=== PATIENT | male | born 1935 | race Caucasian/White ===

== ENCOUNTER 2019-04-29 18:03 | Emergency (ER) | payer OTHER, BC ==
[~2019-04-29] VITALS: Ht 185.4 cm; Wt 111.1 kg
[~2019-04-29 18:03] MED LIST: ASPIRIN325 PO; ATORVASTATIN CA40 MG PO; FISH OIL 1,0001 EAC5 PO; GLIPIZIDE ER5 MG PO; GLUCOPHAGE1000 MG PO; IMDUR 30 MG TAB30 M1 PO; LISINOPRIL20 MG PO; NAPROSYN500 MG PO; TOPROL XL100 MG PO
[2019-04-29 18:35] LABS: URINE BILIRUBIN NEGATIVE (Negative); URINE BLOOD 1+ (Negative); URINE CLARITY SL CLOUDY; URINE COLOR YELLOW; URINE GLUCOSE-RANDOM* NEGATIVE (Negative); URINE KETONES NEGATIVE (Negative); URINE LEUKOCYTES-REFLEX 2+ (Negative); URINE NITRITE-REFLEX POSITIVE (Negative); URINE PROTEIN (DIPSTICK) 2+ (Negative); URINE SPECIFIC GRAVITY 1.015 (1.005-1.035)
[2019-04-29 18:57] LABS: CASTS None Seen /LPF (None Seen); MUCUS None Seen strn/LPF (None Seen); SQUAMOUS None Seen /LPF (0-3)
[2019-04-29 18:58] LABS: CRYSTALS None Seen /LPF (None Seen); URINE RBC 3-10 Few /HPF (0-2)
[2019-04-29 18:58] LABS: ABSOLUTE NEUTROPHILS 10.7 thou/uL (1.4-8.2); BASOPHILS 0.5 % (0.0-2.0); HEMATOCRIT 39.4 % (42.0-52.0); HEMOGLOBIN 13.3 gm/dL (14.0-18.0); MCH 31.6 pg (26.0-34.0); MCHC 33.8 g/dL (28.0-37.0); MCV 93.6 fL (80.0-100.0); MONOCYTES 3.7 % (1.0-8.0); PLATELET COUNT 254 thou/uL (150-400); POLYS 88.8 % (36.0-66.0); RBC 4.21 mil/uL (4.50-6.00); RDW 14.3 % (10.5-14.5); WBC 12.1 thou/uL (4.0-11.0)
[2019-04-29] MEDS ORDERED: SPIRONOLACTONE25 M1 PO (19:02)
[2019-04-29] MEDS ORDERED: ZANTAC 150MG T150 MG PO (19:07)
[2019-04-29] MEDS ORDERED: OXYBUTYNIN 5 MG5 M2 PO (19:07)
[2019-04-29 19:08] LABS: ANION GAP 12 mmol/L (7-16); BUN 31 mg/dL (7-18); CALCIUM 9.7 mg/dL (8.5-10.1); CHLORIDE 96 mmol/L (98-107); CO2 23 mmol/L (21-32); CREATININE 1.6 mg/dL (0.7-1.3); GLUCOSE 173 mg/dL (74-106); POTASSIUM 4.5 mmol/L (3.5-5.1); SODIUM 131 mmol/L (136-145)
[2019-04-29 19:19] LABS: ALBUMIN 3.8 g/dL (3.4-5.0); LIPASE 32 U/L (73-393); MAGNESIUM 1.6 mg/dL (1.8-2.4); SGOT 24 U/L (15-37); SGPT 29 U/L (30-65); TOTAL BILIRUBIN 1.7 mg/dL (<0.1-1.0); TOTAL PROTEIN 7.2 g/dL (6.4-8.2); TROPONIN-I <0.06 ng/mL (<0.06)
[2019-04-29 23:22] VITALS: BP 155/70
--- NOTE | 2019-05-02 09:01 | EKG ---
[address] [place] [address] ELECTROCARDIOGRAM REPORT Name: SHERRELL SALAZAR Room #: [facility]P [facility] [id number] Admission: 04/29/19 Attend Phys: Discharge: 04/29/19 Date of : 31 Report #: [id number] THIS REPORT FOR: //name// [facility] ED Test Date: 2019-04-29 Test Time: 18:34:26 Pat Name: SHERRELL SALAZAR Department: Room: Gender: [facility] 1935 Requested By: Angel Irwin Order Number: [id number] MD: Levy Frank Measurements Intervals [place] Rate: 89 P: 32 AR: 199 QRS: 24 QRSD: 157 T: 23 QT: 402 QTc: 490 Interpretive Statements Sinus rhythm Nonspecific intraventricular conduction delay Compared to ECG 09/11/2013 09:23:05 Intraventricular conduction delay now present Sinus bradycardia no longer present Right bundle-branch block no longer present Electronically Signed On 05-02-2019 9:01:12 CDT by Levy Frank [email or web address] <ELECTRONICALLY SIGNED> By: Levy Frank MD [address] 33 33 Levy Frank MD /MAIRA
== END 2019-04-29 23:23 | disposition short-term general hospital (02) ==
LOC: ER 18:03
PROVIDERS: Emergency Medicine
DX: N20.0 Calculus of kidney (principal); N12 Tubulo-interstitial nephritis, not specified as acute or chronic; R41.82 Altered mental status, unspecified; I10 Essential (primary) hypertension; E11.9 Type 2 diabetes mellitus without complications; E78.00 Pure hypercholesterolemia, unspecified; I25.10 Atherosclerotic heart disease of native coronary artery without angina pectoris; G47.30 Sleep apnea, unspecified; Z86.73 Personal history of transient ischemic attack (TIA), and cerebral infarction without residual deficits; Z98.890 Other specified postprocedural states; Z85.46 Personal history of malignant neoplasm of prostate; Z95.2 Presence of prosthetic heart valve; Z88.5 Allergy status to narcotic agent; Z87.891 Personal history of nicotine dependence

== ENCOUNTER 2021-08-04 23:15 | Emergency (ER) | payer OTHER, BC ==
[~2021-08-04 23:15] MED LIST changes: +OXYBUTYNIN 5 MG5 M2 PO; +SPIRONOLACTONE25 M1 PO; +ZANTAC 150MG T150 MG PO
[2021-08-04] MEDS ORDERED: METOPROLOL SUCC50 MG PO ×2 (23:30)
[2021-08-04] MEDS ORDERED: MEMANTINE HCL5 MG PO ×2 (23:30)
[2021-08-04] MEDS ORDERED: PROTONIX40 M2 PO ×2 (23:30)
[2021-08-04] MEDS ORDERED: JARDIANCE25 MG PO ×2 (23:31)
[2021-08-04] MEDS ORDERED: IPRATROPIUM BRO15 ML NASAL ×2 (23:31)
[2021-08-04] MEDS ORDERED: TAMSULOSIN HCL0.4 MG PO ×2 (23:31)
[2021-08-04] MEDS ORDERED: CARBIDOPA-LEVO1 EAC1 PO ×2 (23:32)
[2021-08-04] MEDS ORDERED: GLIPIZIDE5 MG PO ×2 (23:32)
[2021-08-04] MEDS ORDERED: DALIRESP500 MCG PO ×2 (23:32)
[2021-08-04] MEDS ORDERED: PRED FORTE 1% EY5 M1 LT. EYE (23:33)
[2021-08-04] MEDS ORDERED: IPRAT-ALBUT 0.5-3 ML INH ×2 (23:38)
[2021-08-05 03:21] VITALS: BP 147/89
== END 2021-08-05 03:30 ==
LOC: ER 23:15
PROVIDERS: Emergency Medicine
DX: R45.851 Suicidal ideations (principal); Z20.822 Contact with and (suspected) exposure to COVID-19; E11.9 Type 2 diabetes mellitus without complications; I10 Essential (primary) hypertension; E78.00 Pure hypercholesterolemia, unspecified; I25.10 Atherosclerotic heart disease of native coronary artery without angina pectoris; Z87.891 Personal history of nicotine dependence; Z88.5 Allergy status to narcotic agent; Z79.899 Other long term (current) drug therapy; Z85.46 Personal history of malignant neoplasm of prostate; Z86.73 Personal history of transient ischemic attack (TIA), and cerebral infarction without residual deficits

== ENCOUNTER 2021-08-05 03:28 | Inpatient (IN) | payer OTHER, BC ==
[~2021-08-05] VITALS: Ht 185.4 cm; Wt 98.2 kg
[~2021-08-05 03:28] MED LIST changes: +CARBIDOPA-LEVO1 EAC1 PO; +DALIRESP500 MCG PO; +GLIPIZIDE5 MG PO; +IPRAT-ALBUT 0.5-3 ML INH; +IPRATROPIUM BRO15 ML NASAL; +JARDIANCE25 MG PO; +MEMANTINE HCL5 MG PO; +METOPROLOL SUCC50 MG PO; +PRED FORTE 1% EY5 M1 LT. EYE; +PROTONIX40 M2 PO; +TAMSULOSIN HCL0.4 MG PO
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
[2021-08-05 07:20] VITALS: BP 132/98
[2021-08-05 08:18] LABS: CHOLESTEROL 249 mg/dL (<200); HDL CHOLESTEROL 38 mg/dL (>40); LDL CHOLESTEROL 146 mg/dL (<100); TC:HDL 6.6 Ratio (Not establshd); TRIGLYCERIDE 329 mg/dL (<150); VLDL 66 mg/dL (<40)
[2021-08-05 09:06] LABS: ALBUMIN 3.5 g/dL (3.4-5.0); CALCIUM 9.5 mg/dL (8.5-10.1); MAGNESIUM 2.3 mg/dL (1.8-2.4); POTASSIUM 4.3 mmol/L (3.5-5.1); TOTAL BILIRUBIN 0.7 mg/dL (0.2-1.0); TOTAL PROTEIN 6.4 g/dL (6.4-8.2)
[2021-08-05 10:48] LABS: ABSOLUTE NEUTROPHILS 3.4 thou/uL (1.4-8.2); EOSINOPHILS 6.7 % (0.0-3.0); HEMATOCRIT 42.1 % (42.0-52.0); HEMOGLOBIN 14.1 gm/dL (14.0-18.0); LYMPHOCYTES 27.1 % (24.0-44.0); MCH 31.2 pg (26.0-34.0); MCHC 33.5 g/dL (28.0-37.0); MONOCYTES 7.2 % (1.0-8.0); PLATELET COUNT 237 thou/uL (150-400); RBC 4.53 mil/uL (4.50-6.00); RDW 13.6 % (10.5-14.5); WBC 5.8 thou/uL (4.0-11.0)
[2021-08-05 12:23] LABS: URINE BILIRUBIN NEGATIVE (Negative); URINE BLOOD TRACE (Negative); URINE CLARITY SL CLOUDY; URINE COLOR YELLOW; URINE GLUCOSE-RANDOM* 3+ (Negative); URINE KETONES NEGATIVE (Negative); URINE NITRITE-REFLEX NEGATIVE (Negative); URINE PROTEIN (DIPSTICK) NEGATIVE (Negative); URINE UROBILINOGEN 0.2 E.U./dl (0.2-1.0)
[2021-08-05 12:25] LABS: URINE LEUKOCYTES-REFLEX 2+ (Negative)
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
[2021-08-05 12:53] LABS: SQUAMOUS 0-3 Few /LPF (0-3)
[2021-08-05 12:54] LABS: BACTERIA-REFLEX 1-9 Few /HPF (None Seen); CASTS None Seen /LPF (None Seen); CRYSTALS None Seen /LPF (None Seen); URINE RBC 1-2 Rare /HPF (NONE SEEN); URINE WBC-REFLEX >25 Many /HPF (0-5)
--- NOTE | 2021-08-05 14:29 | NUR ---
Alert and orientated. Calm, cooperative and compliant. Denies SI/HI. Breath sounds clear. Reg HR auscultated. Color pink with brisk capillary refill and palpable peripheral pulses. Active bowel sounds over soft, rounded abdomen. Ambulates with walker with regular, steady gait.
--- NOTE | 2021-08-05 17:13 | NUR ---
Patient care resummed, patient resting comfortably in bed and wsa awoken by staff for breakfast. A&O*4, lung sounds clear and unlabored bilaterally, abdomen soft;nondistended with bowel sounds present*4; Patient had a large, blood tinged bowel movement today, preformed a rectal exam and noted inflammed hemmorriods; Suppository and colace ordered. Odorus urine also noted; along side dark urine in urinal at bedside and Labs reviewed a UTI; antibiotics are on board. VSS on RM, skin assessment showed reddness to the buttocks area and barrier cream has been applied. Patient has an unsteady gait with the walker, and has been assisted around the unit with a *1 assist with gaitbelt. Weakness in bilateral lower extremities, and a Right foot droop post TIA. PT consulted with the patient today. Patient denies SI/HI/AVH, anxiety, pain, and depression; states "I am just worried about my youngest dtr taking everything I have." Patient DPOA paperwork is currently being faxed over by the oldest dtr. Augustine; who states is the patients DPOA. The patient was a voluntary admission, and DPOA status is still pending per as paperwork still has not been recieved. Fall precautions are in place, will continue to monitior patient for safety, sepsis, and psych safety.
[2021-08-05 21:42] VITALS: BP 157/88
[2021-08-06 01:06] LABS: GLYCOHEMOGLOBIN (HGB A1C) 6.5 % (4.8-5.6)
--- NOTE | 2021-08-06 04:33 | NUR ---
08-05-21 CARE TRANSFERRED 1899. LATER PT AAOX4, VSS, RR EVEN AND NONLABORED ON RA. PT DENIES PAIN AND SI/HI. LUNGS CLEAR, HT RR, ABD SOFT AND ACTIVE. PT HAS REDNESS IN PERIAREA, PT WAS CLEANED WITH SOAP AND WATER, BARRIER CREAM APPLIED WITH CLEAN BRIEF. DURING MEDICATIN ADMIN PT HAD NO DIFFICULTIES TAKING WHOLE WITH WATER.
[2021-08-06 08:27] VITALS: BP 101/70
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
--- NOTE | 2021-08-06 09:08 | NUR ---
New admit to [facility] with SI, depression. Advanced age 85. Hx diabetes, hyperlipidemia, parkionson, htn, prostate cancer, diverticulitis. Overweight status, BMI 28, no significant changes reported. Intake 75-100% of meals. BG control with A1C 6.5, on linagliptin. Lipids are significantly elevated, chol 249, triglycerides 329, LDL 146-defer need for statin to hospitalist. Change diet to carb control, heart healthy. Otherwise low nutrition risk
--- NOTE | 2021-08-06 11:03 | NUR ---
08-06-2021--0998--Attended team meeting this date for patient. MD and RN were available as well as DON. Looking for DC tomorrow. Will talk again to doctor and patient's daughter Susan.
[2021-08-06 11:33] LABS: ABSOLUTE NEUTROPHILS 5.5 thou/uL (1.4-8.2); BASOPHILS 0.9 % (0.0-2.0); EOSINOPHILS 3.4 % (0.0-3.0); HEMATOCRIT 44.9 % (42.0-52.0); HEMOGLOBIN 14.7 gm/dL (14.0-18.0); LYMPHOCYTES 26.9 % (24.0-44.0); MCHC 32.8 g/dL (28.0-37.0); MCV 94.6 fL (80.0-100.0); MONOCYTES 7.2 % (1.0-8.0); PLATELET COUNT 267 thou/uL (150-400); POLYS 61.6 % (36.0-66.0); RBC 4.74 mil/uL (4.50-6.00); RDW 13.9 % (10.5-14.5); WBC 8.9 thou/uL (4.0-11.0)
--- NOTE | 2021-08-06 12:26 | NUR ---
08-06-2021--1200--Patient's daughter seen in the hallway outside of [facility] talkoing with daughter. We discussed DCing about 11:30 tomorrow and she said she would be fine with that. Told her he will need an appt at [facility] [place] to have a therapist, psychiatrist and case liner. She was agreeale. Spoke to patient about [place]'ing and he said he was ready. He stated "I do want to see this doctor again when I'm out." Explained we would arrange for him to see someone closer to home at [facility]. He was agreeable with this.
--- NOTE | 2021-08-06 17:45 | NUR ---
Patient care resummed, patient in room resting comforably. Patient attend meals and group in the dayroom without complication, as well as participated in PT. Patient A&O*3; disoriented to Time; lung sounds clear bilaterally & unlabored; abdomen soft;nondistended with bowel sounds present*4. Patient denies SI/HI/AVH, anxiety, depression, and pain. Patient is continent of bowel and bladder although skin assessment shows reddness to buttocks;barrier cream applied. Medications whole; VSS; ACHS; ambulatory with walker. Fall precautions are in place, will continue to monitior patient for safety and behaviors. Calm, cooperative, and pleasent throughout the day.
[2021-08-06 19:39] VITALS: BP 116/69
--- NOTE | 2021-08-06 19:50 | NUR ---
7AM-7PM NURSES NOTES AND ASSESSMENTS REVIEWED AND NO CHANGES REQUIRED
--- NOTE | 2021-08-06 23:26 | NUR ---
At onset of hotel night auditor pt was resting in bed awake. This shift pt was alert and oriented x4. Pt was overall calm, pleasant and cooperative. Pt was compliant with medication and vital signs. RN applied z-paste to pt's buttocks due to redness. Pt denied SI, HI and AVH. Pt stated that someone lied to get him to this hospital telling him he was going to have an operation here and then be sent back home quickly. Fall precautions are in place. Will continue to monitor.
[2021-08-07 07:30] VITALS: BP 138/62
--- NOTE | 2021-08-07 07:47 | NUR ---
08-07-2021--8015--Talked to patient briefly and he states he is ready to go home. He asked what time he should start getting ready and I told him he had time to eat is breakfast and go to group. He was agreeable to this.
[2021-08-07 09:25] VITALS: BP 138/62
[2021-08-07] MEDS ORDERED: CEFUROXIME500 MG PO ×2 (10:33)
[2021-08-07] MEDS ORDERED: COLACE 100 MG100 MG PO ×2 (10:34)
[2021-08-07 10:49] VITALS: BP 138/62
--- NOTE | 2021-08-07 13:03 | NUR ---
Jair was discharged at 1145 via wheelchair to meet his daughter, Virgie at the front enterence. Discharge paperwork was reviewed with Virgie (pt's DPOA) and all questions answered. Virgie was encouraged to call with any further questions. Pt was discharged with all belongings and a copy of D/C paperwork. Pt was alert and oriented x4 this shift and presented as calm, cooperative, and pleasant. Pt is very [place] but able to hold a conversation fairly easily. He denied SI/HI/HERNADEZ and remained safe on the unit. Pt ambulated using a walker without difficulty but was on high fall risk precautions until D/C.
[2021-08-07 21:06] LABS: SYPHILIS AB Non Reactive (Non Reactive)
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
== END 2021-08-07 11:45 | disposition home or self-care (01) | DRG 881 ==
LOC: SBH 03:28
PROVIDERS: Nurse Practitioner; ADMIT Psychiatry & Neurology Psychiatry; ATTEND Psychiatry & Neurology Psychiatry
DX: F32.A Depression, unspecified (principal); N18.9 Chronic kidney disease, unspecified; N39.0 Urinary tract infection, site not specified; R45.851 Suicidal ideations; K92.1 Melena; E11.22 Type 2 diabetes mellitus with diabetic chronic kidney disease; N40.0 Benign prostatic hyperplasia without lower urinary tract symptoms; I12.9 Hypertensive chronic kidney disease with stage 1 through stage 4 chronic kidney disease, or unspecified chronic kidney disease; J44.9 Chronic obstructive pulmonary disease, unspecified; E78.00 Pure hypercholesterolemia, unspecified; E78.5 Hyperlipidemia, unspecified; B96.4 Proteus (mirabilis) (morganii) as the cause of diseases classified elsewhere; Z20.822 Contact with and (suspected) exposure to COVID-19; I25.10 Atherosclerotic heart disease of native coronary artery without angina pectoris; E11.40 Type 2 diabetes mellitus with diabetic neuropathy, unspecified; K64.9 Unspecified hemorrhoids; Z79.899 Other long term (current) drug therapy; Z85.46 Personal history of malignant neoplasm of prostate; Z87.442 Personal history of urinary calculi; Z88.8 Allergy status to other drugs, medicaments and biological substances; Z95.5 Presence of coronary angioplasty implant and graft; Z86.73 Personal history of transient ischemic attack (TIA), and cerebral infarction without residual deficits
CPT/HCPCS: 10880